=== PATIENT | female | born 1975 | race African-American/Black ===

== ENCOUNTER 2018-04-02 12:58 | Emergency (ER) | payer MEDICAID ==
[~2018-04-02] VITALS: Ht 152.4 cm; Wt 54.6 kg
[2018-04-02] MEDS ORDERED: ELIM5CRE2 TOP (14:39)
[2018-04-02] MEDS ORDERED: BENA25CA4 PO (14:39)
[2018-04-02 14:53] VITALS: BP 111/70
== END 2018-04-02 14:54 | disposition home or self-care (01) ==
LOC: M ED 12:58
DX: B86 Scabies (principal); F17.200 Nicotine dependence, unspecified, uncomplicated

== ENCOUNTER → 2022-10-11 | Outpatient (REF) ==
[~2022-10-11] MED LIST: BENA25CA4 PO; ELIM5CRE2 TOP
== END ==
LOC: M LAB 13:21
PROVIDERS: ATTEND Nurse Practitioner Adult Health
DX: Z02.89 Encounter for other administrative examinations (principal)

== ENCOUNTER 2025-02-03 20:17 | Emergency (ER) | payer OTHER ==
[~2025-02-03] VITALS: Ht 152.4 cm; Wt 50.3 kg
[~2025-02-03 20:17] MED LIST changes: -ELIM5CRE2 TOP; +IBUP600T42 PO; +PERM60CR8 TOP
[2025-02-03 20:18] VITALS: BP 149/81; TEMP 98.3; O2SAT 98
== END 2025-02-03 21:10 | disposition left against medical advice (07) ==
LOC: M ED 20:17
DX: S00.83XA Contusion of other part of head, initial encounter (principal); Y92.9 Unspecified place or not applicable; Y93.9 Activity, unspecified; Y99.9 Unspecified external cause status; Z79.1 Long term (current) use of non-steroidal anti-inflammatories (NSAID)